=== PATIENT | male | born 2000 | race American Indian/Alaskan Native ===

== ENCOUNTER 2025-02-09 05:25 | Emergency (ER) | payer MEDICAID, SELFPAY ==
[2025-02-09 05:33] VITALS: BP 143/92; PULSE 135; RESP 20; TEMP 37.1; O2SAT 95
[2025-02-09 05:34] VITALS: BMI 33.4
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
--- NOTE | 2025-02-09 08:02 | PC.LAC ---
PT REFUSED X-RAY, PT WAS MADE AWARE THAT HE CAN HAVE A SERIOUS INJURY THAT CAN GET WORSE UP TO THE POINT THAT HE CAN LOSE HIS LEFT ARM. PT STILL REFUSED, DR. PURI MADE AWARE.
[2025-02-09 08:23] VITALS: BP 147/88; PULSE 108; RESP 16; TEMP 36.8; O2SAT 95
== END 2025-02-09 10:06 ==
PROVIDERS: Emergency Provider Family Medicine; PCP Physician Assistant
DX: Z02.89 Encounter for other administrative examinations (principal); F10.129 Alcohol abuse with intoxication, unspecified; M25.512 Pain in left shoulder; R00.0 Tachycardia, unspecified; Y90.9 Presence of alcohol in blood, level not specified
CPT/HCPCS: 99282